=== PATIENT | male | born 1985 | race Two or more races ===

== ENCOUNTER 2017-08-16 17:53 | Inpatient (IN) | payer OTHER ==
[2017-08-16 20:36] LABS: ABS Basophils 0 10^3/ul (0-0.2); ABS Eosinophils 0.3 10^3/ul (0-0.6); ABS Lymphocytes 2.2 10^3/ul (1.0-4.8); ABS Monocytes 0.6 10^3/ul (0-0.8); ABS Neutrophils 2.6 10^3/ul (1.5-7.7); ABS Nucleated RBC 0 10^3/ul; Eosinophil % 5.5 % (0-6); Hematocrit 38 % (42-52); Hemoglobin 13.4 g/dl (14.0-18.0); Lymphocyte % 39.1 % (25-47); Mean Corpuscular HGB Conc 36 g/dl (31-36); Mean Corpuscular Hemoglobin 30 pg (27-31); Mean Corpuscular Volume 84 fL (80-94); Mean Platelet Volume 8.1 um3 (7.4-10.4); Nucleated Red Blood Cells % 0; Platelet Count 205 10^3/ul (150-450); Red Cell Distribution Width 13 % (10.5-15); White Blood Count 5.7 10^3/ul (3.5-10.8)
[2017-08-16 21:07] LABS: EGFR Non-African American 89.4 (>60)
[2017-08-16] MEDS ORDERED: buPROPion TAB* 100 MG PO ONE (21:22)
[2017-08-16] MEDS: Gabapentin CAP(*) 400 MG PO ONE (22:18)
[2017-08-17] MEDS ORDERED: QUEtiapine TAB* 100 MG PO ONE (01:15)
[2017-08-17] MEDS: Nicotine GUM* 2 MG PO PRN ×4 (02:01→20:38)
--- NOTE | 2017-08-17 05:44 | ED ---
Alcides Love Jennifer, scribed for Mele Kolb MD on 08/16/17 at 1957 . Psychiatric Complaint - HPI Summary HPI Summary: The patient is a 31 year old male who comes to the ED for evaluation of mental health from drug rehab. The patient is currently in rehab voluntarily for opiates, painkillers, and alcohol. He denies any symptoms of withdrawal. Patient denies SI, HI, chest pain, abdominal pain, nausea, headache. - History Of Current Complaint Chief Complaint: EDMentalHealth Time Seen by Provider: 08/16/17 19:10 Hx Obtained From: Patient Onset/Duration: Sudden Onset, Still Present Timing: Constant Severity Initially: Mild Severity Currently: None Aggravating Factor(s): Alcohol Use, Drug Use Alleviating Factor(s): Nothing Has Suicidal: Denies: Thoughts, With A Plan Has Homicidal: Denies: Thoughts, With A Plan - Allergies/Home Medications Allergies/Adverse Reactions: Allergies Allergy/AdvReac Type Severity Reaction Status Date / Time amoxicillin Allergy Unknown Verified 08/17/17 00:24 Reaction Details Penicillins Allergy Unknown Verified 08/17/17 00:23 Reaction Details Home Medications: Home Medications Buprenorphine/Naloxone SL TAB* [Suboxone 8-2 mg SL TAB*] 1.5 tab.sl SL QAM 08/16 [History Confirmed 08/17/17] Escitalopram (NF) [Lexapro 10 mg (NF)] 10 mg PO DAILY 08/16/17 [History Confirmed 08/17/17] Gabapentin CAP(*) [Neurontin 400 mg CAP(*)] 800 mg PO QID 08/16/17 [History Confirmed 08/17/17] QUEtiapine TAB* [Seroquel 100 MG *] 100 mg PO QPM 08/16/17 [History Confirmed ] buPROPion SR TAB* [Wellbutrin SR TAB*] 100 mg PO BID 08/16/17 [History Confirmed 08/17/17] busPIRone TAB* [Buspar TAB*] 10 mg PO Q6H PRN 08/17/17 [History Confirmed ] hydrOXYzine HCL TAB* [Atarax TAB 50 MG *] 50 mg PO Q4H PRN 08/17/17 [History Confirmed 08/17/17] PMH/Surg Hx/FS Hx/Imm Hx Endocrine/Hematology History: Denies: Hx Diabetes Cardiovascular History: Denies: Hx Hypertension Psychiatric History: Reports: Hx Depression, Hx of Violent Episodes Against Others Infectious Disease History: No Infectious Disease History: Denies: Traveled Outside the [place] in Last 30 Days - Family History Known Family History: Negative: Renal Disease - Social History Occupation: Unemployed Alcohol Use: Occasionally Hx Substance Use: Yes Substance Use Type: Reports: Cocaine, Heroin, Marijuana Hx Tobacco Use: Yes Smoking Status (MU): Light Every Day Tobacco Smoker Review of Systems Negative: Chest Pain Negative: Abdominal Pain, Nausea Negative: Headache Negative: Other - SI, HI All Other Systems Reviewed And Are Negative: Yes Physical Exam - Summary Physical Exam Summary: Appearance: Well appearing, no pain distress Skin: Surgical scar on left wrist, warm, dry, reflects adequate perfusion Head/face: normal Eyes: EOMI, VIVIAN ENT: normal Neck: supple, non-tender Respiratory: CTA, breath sounds present Cardiovascular: RRR, pulses symmetrical Abdomen: non-tender, soft Bowel Sounds: present Musculoskeletal: normal, strength/ROM intact Neuro: normal, sensory motor intact, A&Ox3 Triage Information Reviewed: Yes Vital Signs On Initial Exam: Initial Vitals Temp Pulse Resp BP Pulse Ox 98.1 F 70 16 120/67 99 08/16/17 18:09 08/16/17 18:09 08/16/17 18:09 08/16/17 18:09 08/16/17 18:09 Vital Signs Reviewed: Yes Diagnostics - Vital Signs Vital Signs Temp Pulse Resp BP Pulse Ox 08/16/17 18:09 98.1 F 70 16 120/67 99 - Laboratory Lab Results: Lab Results 08/16/17 08/16/17 Range/Units 20:30 20:30 WBC 5.7 (3.5-10.8) 10^3/ul RBC 4.50 (4.0-5.4) 10^6/ul Hgb 13.4 L (14.0-18.0) g/dl Hct 38 L (42-52) % MCV 84 (80-94) fL MCH 30 (27-31) pg MCHC 36 (31-36) g/dl RDW 13 (10.5-15) % Plt Count 205 (150-450) 10^3/ul MPV 8.1 (7.4-10.4) um3 Neut % (Auto) 44.9 (38-83) % Lymph % (Auto) 39.1 (25-47) % Bell % (Auto) 9.7 H (0-7) % Eos % (Auto) 5.5 (0-6) % Baso % (Auto) 0.8 (0-2) % Absolute Neuts (auto) 2.6 (1.5-7.7) 10^3/ul Absolute Lymphs (auto) 2.2 (1.0-4.8) 10^3/ul Absolute Monos (auto) 0.6 (0-0.8) 10^3/ul Absolute Eos (auto) 0.3 (0-0.6) 10^3/ul Absolute Basos (auto) 0 (0-0.2) 10^3/ul Absolute Nucleated RBC 0 10^3/ul Nucleated RBC % 0 Sodium 138 L (139-145) mmol/L Potassium 4.4 (3.5-5.0) mmol/L Chloride 101 (101-111) mmol/L Carbon Dioxide 31 (22-32) mmol/L Anion Gap 6 (2-11) mmol/L BUN 13 (6-24) mg/dL Creatinine 0.99 (0.67-1.17) mg/dL Est GFR ( Amer) 114.9 (>60) Est GFR (Non-Af Amer) 89.4 (>60) BUN/Creatinine Ratio 13.1 (8-20) Glucose 94 (70-100) mg/dL Calcium 9.4 (8.6-10.3) mg/dL Total Bilirubin 0.80 (0.2-1.0) mg/dL AST 33 (13-39) U/L ALT 37 (7-52) U/L Alkaline Phosphatase 56 (34-104) U/L Total Protein 7.1 (6.4-8.9) g/dL Albumin 4.1 (3.2-5.2) g/dL Globulin 3.0 (2-4) g/dL Albumin/Globulin Ratio 1.4 (1-3) TSH 1.15 (0.34-5.60) mcIU/mL Salicylates < 2.50 (<30) mg/dL Acetaminophen < 15 mcg/mL Serum Alcohol < 10 (<10) mg/dL Result Diagrams: 08/16/17 20:30 08/16/17 20:30 Lab Statement: Any lab studies that have been ordered have been reviewed, and results considered in the medical decision making process. Course/Dx - Course Course Of Treatment: The patient was medically cleared. He was taken for crisis evaluation. Crisis evaluators have elected to observe the patient through the night and make disposition on him following observation later in the morning. The patient will be held and signed out to Dr. Henley at shift change. The patient will go to a dual recovery program. - Differential Dx/Clinical Impression Provider Diagnosis: Adjustment disorder, Substance abuse Discharge - Sign-Out/Discharge Documenting (check all that apply): Sign-Out Patient Signing out patient TO: Chris Henley - pending transfer to dual recovery program - Discharge Plan Condition: Stable Referrals: No Primary Care Phys,NOPCP [Primary Care Provider] - - Billing Disposition and Condition Condition: STABLE The documentation as recorded by the Alcides harper Jennifer accurately reflects the service I personally performed and the decisions made by , Mele Kolb MD.
[2017-08-17 08:34] LABS: Urine Appearance Clear; Urine Blood Negative (Negative); Urine Color Yellow; Urine Ketones Negative (Negative); Urine Protein Negative (Negative); Urine Urobilinogen Negative (Negative)
[2017-08-17] MEDS ORDERED: LORazepam INJ* 2 MG/ML 1 ML VIAL IM ONE (08:43)
[2017-08-17] MEDS ORDERED: Haloperidol INJ IV/IM* 5 MG/ML AMP IM ONE (08:47)
[2017-08-17] MEDS ORDERED: Haloperidol INJ IV/IM* 5 MG/ML AMP ONE (08:48)
[2017-08-17] MEDS ORDERED: Gabapentin CAP(*) 400 MG PO ONE (09:00)
[2017-08-17] MEDS ORDERED: buPROPion SR TAB.SR* 100 MG PO ONE (09:00)
[2017-08-17] MEDS: CMC:Escitalopram (NF) 10 MG TAB PO SCH (09:02)
[2017-08-17] MEDS: Buprenorphine/Naloxone 8-2 MG SL TAB* 1 TAB PO SCH (09:27)
[2017-08-17] MEDS ORDERED: Al Hydrox/Mg Hydrox/Simet LIQ* 30 ML UDC PO PRN (11:30)
--- NOTE | 2017-08-17 11:30 | PN ---
ED Flex Patient Progress Note Date of Service: 08/17/17 Subjective: The patient is currently asleep following stat administration of IM medications following violent outburst this AM in the Flex. I called Dr. Celis ), medical provider at [facility] in [place], [place], who was the referring physician. Dr. Celis states that Mr. Bhakta is not appropriate for return to [facility], as his mental health needs would require a Dual Diagnosis facility, such as [facility] in [place], [place]. In response to my assertion that it is often difficult for [facility] to transfer patients to [facility], due to frequent lack of bed availability, Dr. Celis assures me that DVD administration, including Fiber Analyst Celestine Tobin ([phone]), will assist in facilitating transfer once the patient is psychiatrically cleared. Objective: Sleeping young male in blue patient scrubs Assessment: Unspecified Mood DO Plan: Admit to [facility] for psychiatric stabilization, followed by likely transfer to appropriate dual diagnosis facility. Vital Signs Temp Pulse Resp BP Pulse Ox 98.2 F 71 20 109/60 99 08/17/17 08:31 08/17/17 08:31 08/17/17 08:55 08/17/17 08:31 08/16/17 18:09 Lab Results - Entire Visit 08/17/17 08/17/17 08/16/17 08:15 08:15 20:30 WBC RBC Hgb Hct MCV MCH MCHC RDW Plt Count MPV Neut % (Auto) Lymph % (Auto) [place] % (Auto) Eos % (Auto) Baso % (Auto) Absolute Neuts (auto) Absolute Lymphs (auto) Absolute Monos (auto) Absolute Eos (auto) Absolute Basos (auto) Absolute Nucleated RBC Nucleated RBC % Sodium 138 L Potassium 4.4 Chloride 101 Carbon Dioxide 31 Anion Gap 6 BUN 13 Creatinine 0.99 Est GFR ( Amer) 114.9 Est GFR (Non-Af Amer) 89.4 BUN/Creatinine Ratio 13.1 Glucose 94 Calcium 9.4 Total Bilirubin 0.80 AST 33 ALT 37 Alkaline Phosphatase 56 Total Protein 7.1 Albumin 4.1 Globulin 3.0 Albumin/Globulin Ratio 1.4 TSH 1.15 Urine Color Yellow Urine Appearance Clear Urine pH 6.0 Ur Specific [place] 1.020 Urine Protein Negative Urine Ketones Negative Urine Blood Negative Urine Nitrate Negative Urine Bilirubin Negative Urine Urobilinogen Negative Ur Leukocyte Esterase Negative Urine Glucose Negative Salicylates < 2.50 Urine Opiates Screen None detected Acetaminophen < 15 Ur Barbiturates Screen None detected Ur Phencyclidine Scrn None detected Ur Amphetamines Screen None detected U Benzodiazepines Scrn None detected Urine Cocaine Screen None detected U Cannabinoids Screen None detected Serum Alcohol < 10 08/16/17 20:30 WBC 5.7 RBC 4.50 Hgb 13.4 L Hct 38 L MCV 84 MCH 30 MCHC 36 RDW 13 Plt Count 205 MPV 8.1 Neut % (Auto) 44.9 Lymph % (Auto) 39.1 [place] % (Auto) 9.7 H Eos % (Auto) 5.5 Baso % (Auto) 0.8 Absolute Neuts (auto) 2.6 Absolute Lymphs (auto) 2.2 Absolute Monos (auto) 0.6 Absolute Eos (auto) 0.3 Absolute Basos (auto) 0 Absolute Nucleated RBC 0 Nucleated RBC % 0 Sodium Potassium Chloride Carbon Dioxide Anion Gap BUN Creatinine Est GFR ( Amer) Est GFR (Non-Af Amer) BUN/Creatinine Ratio Glucose Calcium Total Bilirubin AST ALT Alkaline Phosphatase Total Protein Albumin Globulin Albumin/Globulin Ratio TSH Urine Color Urine Appearance Urine pH Ur Specific [place] Urine Protein Urine Ketones Urine Blood Urine Nitrate Urine Bilirubin Urine Urobilinogen Ur Leukocyte Esterase Urine Glucose Salicylates Urine Opiates Screen Acetaminophen Ur Barbiturates Screen Ur Phencyclidine Scrn Ur Amphetamines Screen U Benzodiazepines Scrn Urine Cocaine Screen U Cannabinoids Screen Serum Alcohol
[2017-08-17] MEDS ORDERED: hydrOXYzine HCL TAB* 50 MG PO PRN (11:32)
[2017-08-17] MEDS: Gabapentin CAP(*) 400 MG PO SCH ×3 (14:12→20:39)
--- NOTE | 2017-08-17 15:44 | ED ---
Jace Love Nilda, scribed for Chris Henley MD on 08/17/17 at 0719 . Progress - Progress Note Progress Note: This pt was signed out by Dr. Kolb, pending [facility] hold, awaiting disposition. Course/Dx - Course Course Of Treatment: This pt was signed out by Dr. Kolb, pending [facility] hold, awaiting disposition. [12:35] Dr. Negron (Psych) agrees to admit pt to [facility] for unspecified mood disorder. - Diagnoses Provider Diagnoses: Unspecified mood [affective] disorder - Provider Notifications Discussed Care Of Patient With: Fercho Negron - Psych Time Discussed With Above Provider: 12:35 Instructed by Provider To: Admit As Inpatient Discharge - Sign-Out/Discharge Documenting (check all that apply): Discharge/Admit/Transfer, Receiving Sign-Out Receiving patient FROM: Mele Kolb - Discharge Plan Condition: Stable Disposition: [facility]ATR[facility]AC[facility] Referrals: No Primary Care Phys,NOPCP [Primary Care Provider] - The documentation as recorded by the Jace harper Nilda accurately reflects the service I personally performed and the decisions made by Kale veliz Jerry, MD.
[2017-08-17] MEDS: Nicotine Inhaler* 10 MG AMP INH PRN ×2 (16:13→20:38)
[2017-08-17] MEDS ORDERED: Mouth Piece, Nicotine* 1 EACH CARTRIDGE ONE (16:13)
[2017-08-17] MEDS ORDERED: Nicotine Inhaler* 10 MG AMP ONE (16:13)
[2017-08-17] MEDS: buPROPion SR TAB.SR* 100 MG PO SCH (16:44)
[2017-08-17] MEDS: QUEtiapine TAB* 100 MG PO SCH (20:39)
[2017-08-17] MEDS: Gabapentin CAP(*) 400 MG PO ONE (20:41)
[2017-08-18] MEDS: Gabapentin CAP(*) 400 MG PO SCH ×4 (08:04→20:49)
[2017-08-18] MEDS: Nicotine Inhaler* 10 MG AMP INH PRN ×6 (08:04→20:51)
[2017-08-18] MEDS: Buprenorphine/Naloxone 8-2 MG SL TAB* 1 TAB PO SCH (08:05)
[2017-08-18] MEDS: buPROPion SR TAB.SR* 100 MG PO SCH ×2 (08:05→16:04)
[2017-08-18] MEDS: Nicotine GUM* 2 MG PO PRN ×6 (08:06→20:50)
[2017-08-18] MEDS: CMC:Escitalopram (NF) 10 MG TAB PO SCH (09:31)
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
[2017-08-18] MEDS: ATOMOXETINE 18 MG PO SCH (14:36)
[2017-08-18] MEDS: cloNIDine TAB* 0.1 MG PO SCH (15:27)
[2017-08-18] MEDS: QUEtiapine TAB* 100 MG PO SCH (20:50)
[2017-08-19] MEDS: ATOMOXETINE 18 MG PO SCH (08:01)
[2017-08-19] MEDS: Gabapentin CAP(*) 400 MG PO SCH ×4 (08:01→20:10)
[2017-08-19] MEDS: CMC:Escitalopram (NF) 10 MG TAB PO SCH (08:01)
[2017-08-19] MEDS: buPROPion SR TAB.SR* 100 MG PO SCH ×2 (08:02→16:03)
[2017-08-19] MEDS: Buprenorphine/Naloxone 8-2 MG SL TAB* 1 TAB PO SCH (08:02)
[2017-08-19] MEDS: cloNIDine TAB* 0.1 MG PO SCH ×4 (08:02→20:13)
[2017-08-19] MEDS: Nicotine GUM* 2 MG PO PRN ×7 (08:05→20:15)
[2017-08-19] MEDS: Nicotine Inhaler* 10 MG AMP INH PRN ×7 (08:05→20:15)
--- NOTE | 2017-08-19 10:36 | PN ---
Subjective - Subjective Subjective: Psychiatric Attending Progress Note: Patient slept 8 hours overnight. was annoyed that he could not use comfort rooom last night but recovered patient did ask me for staff pass and comfort room priveleges today. SW note reviewed and states that patient revealed AH and VH while at program. Patient denies verbalizing this. He relates that he was there for a few hours and they gave him questionairre and he was told to answer as if he were not taking his medications. Patient reports that he has suicidal ideation, depression, hopelessness, and loss of control of his temper when off medication and he answered yes to these questions. He denies "not engaging in the program" stating that he wasn't there long enough to engage. Patient refused clonidine this am due to possible adverse effect he had when he took it for withdrawal. He agreed to try low dosage today and I would check back with him later to see if he was having any side effects. We discussed potential benefits of clonidine for his restlessness and hyperactivity. I explained that once he is on it four times daily, I can replace oral form with a patch. Patch is changed weekly and obviates need to take oral clonidine 4 times daily. Patient also started Strattera 18 mg today. Both clonidine and strattera will target severe ADHD. Objective - Appearance Appearance: Well Developed/Nourished Dysmorphic Features: No Hygiene: Normal Grooming: Well Kept - Behavior Psychomotor Activities: Abnormal-Increased Exhibits Abnormal Movement: Yes - Attitude and Relatedness Attitude and Relatedness: Cooperative Eye Contact: Good - Speech Quality: Unpressured Latencies: Normal Quantity: Appropriate - Mood Patient's Decription of Mood: "Anxious" - hyperthymic and intermittent irritability - Affect Observed Affect: Labile Affect Consistent with: Euthymia - hyperthymic/euthymic - Thought Process Patient's Thought Process: Coherent Thought Content: No Passive Wish, No Suicidal Planning, No Homicidal Ideation, No Paranoid Ideation - Sensorium Type of Hallucinations: Visual: No, Auditory: No, Command: No - Level of Consciousness Orientation: Yes Intact, Yes Orientated to Time, Yes Orientated to Place, Yes Orientated to Person - Impulse Control Impulse Control: Poor - Insight and Judgement Insight and Judgement: Fair - Group Participation Particating in Group Activities: Yes - Medication Management Medication Management Adherence: Yes Assessment - Assessment Clinical Impression: 31 yo with polysubstance abuse on suboxone, mood disorder, severe ADHD, and probable Personality disorder. patient relapsed on cocaine 2 weeks ago and became suicidal and depressed. He was hospitalized for 10 days and discharged to D rehab. Rehab facility sent him to our facility soon after he arrived at their facility as they are not able to meet his needs and because they believed he was having psychotic symtpoms. Patient has ADHD and severe impulse control issues which are untreated. His mental status examination shows no evidence of psychosis. Patient has marked psychomotor restlessnes and irritability. He requires medication adjustment to treat his ADHD symptoms which are severely impairing. Plan - Plan Medications: Current Medications Acetaminophen (Tylenol Tab*) 650 mg PO Q4H PRN PRN Reason: for pain; or Temp >101 F Al Hydrox/Mg Hydrox/Simethicone (Maalox Plus*) 30 ml PO Q4H PRN PRN Reason: INDIGESTION Atomoxetine HCl (Strattera(Nf)) 25 mg PO 0800 [facility] PRN Reason: Protocol Stop: 08/22/17 08:01 Atomoxetine HCl (Strattera (Nf)) 40 mg PO DAILY@08 [facility] PRN Reason: Protocol Buprenorphine/Naloxone (Suboxone 8-2 Mg Sl Tab*) 1.5 tab.sl PO DAILY [facility] Last Admin: 08/19/17 08:02 Dose: 1.5 tab.sl Bupropion HCl (Wellbutrin Sr Tab*) 100 mg PO 0900,1700 [facility] Last Admin: 08/19/17 08:02 Dose: 100 mg Buspirone HCl (Buspar Tab*) 10 mg PO Q6H PRN PRN Reason: AGITATION/ANXIETY Clonidine HCl (Catapres Tab*) 0.05 mg PO QID@08,12,16,21 [facility] Escitalopram Oxalate (Lexapro (Nf)) 10 mg PO DAILY [facility] Last Admin: 08/19/17 08:01 Dose: 10 mg Gabapentin (Neurontin Cap(*)) 800 mg PO QID [facility] Last Admin: 08/19/17 12:17 Dose: 800 mg Hydroxyzine HCl (Atarax Tab*) 50 mg PO Q4H PRN PRN Reason: AGITATION/ANXIETY/INSOMNIA Nicotine (Nicotine Inhaler*) 10 mg INH Q2H PRN PRN Reason: CRAVING Last Admin: 08/19/17 12:17 Dose: 10 mg Nicotine Polacrilex (Nicotine Gum*) 2 mg PO Q2H PRN PRN Reason: CRAVING Last Admin: 08/19/17 12:17 Dose: 2 mg Quetiapine Fumarate (Seroquel Tab*) 100 mg PO 2100 [facility] Last Admin: 08/18/17 20:50 Dose: 100 mg PLAN Increase Strattera to 25 mg po QAM Start Clonidine 0.05 mg QID (total 0.2 mg per day) x 1 day, then tomorrow will increase to 0.1/0.05/0.1/0.5 (total 0.3 mg per day all other medications unchanged (see above) discharge plan is dual diaganosis drug rehab program
--- NOTE | 2017-08-19 13:14 | PN ---
MHU: Group Therapy Note - Service Type Service Type: 00230 Group Psychotherapy - Cognitive Behavioral Group Therapy ( CBT):Patient was attentive and participatory in CBT programming this morning, and remained in good behavioral control. Patient expressed positive insights regarding relevant treatment interventions and goals.
[2017-08-19] MEDS: QUEtiapine TAB* 100 MG PO SCH (20:11)
[2017-08-20] MEDS: CMC:Escitalopram (NF) 10 MG TAB PO SCH (08:06)
[2017-08-20] MEDS: Buprenorphine/Naloxone 8-2 MG SL TAB* 1 TAB PO SCH (08:06)
[2017-08-20] MEDS: Gabapentin CAP(*) 400 MG PO SCH ×4 (08:07→20:21)
[2017-08-20] MEDS: cloNIDine TAB* 0.1 MG PO SCH ×3 (08:08→16:04)
[2017-08-20] MEDS: buPROPion SR TAB.SR* 100 MG PO SCH ×2 (08:08→16:04)
[2017-08-20] MEDS: ATOMOXETINE 25 MG PO SCH (08:08)
[2017-08-20] MEDS: Nicotine GUM* 2 MG PO PRN ×7 (08:10→18:50)
[2017-08-20] MEDS: Nicotine Inhaler* 10 MG AMP INH PRN ×7 (08:10→18:50)
--- NOTE | 2017-08-20 10:24 | PN ---
Subjective - Subjective Subjective: Psychiatric attenting progress note: attending groups and compliant with medication less agitated over all feels clonidine is helping a little to decrease restlessness no adverse effects with clonidine and strattera titration. bp stable MSE: no SI no psychotic symptoms continues with restlessness mood: hyperthymic affect full range motor activity elevated poor impulse control Impression: ADHD severe polysubstance abuse depression recurrent in remission Plan: continue current medication regimen add clonidine patch 0.1 mg over weekend continue clonidine 0.3 mg oral per day increase strattera to 40 mg on wednesday awaiting transfer to dual diagnosis inpatient rehab Assessment - Assessment Clinical Impression: 31 yo with polysubstance abuse on suboxone, mood disorder, severe ADHD, and probable Personality disorder. patient relapsed on cocaine 2 weeks ago and became suicidal and depressed. He was hospitalized for 10 days and discharged to D rehab. Rehab facility sent him to our facility soon after he arrived at their facility as they are not able to meet his needs and because they believed he was having psychotic symtpoms. Patient has ADHD and severe impulse control issues which are untreated. His mental status examination shows no evidence of psychosis. Patient has marked psychomotor restlessnes and irritability. He requires medication adjustment to treat his ADHD symptoms which are severely impairing. Plan - Plan Treatment Plan: Name: KLEBER GUTIERREZ JR Birthdate: 1985 [id number] Medications: Current Medications Acetaminophen (Tylenol Tab*) 650 mg PO Q4H PRN PRN Reason: for pain; or Temp >101 F Al Hydrox/Mg Hydrox/Simethicone (Maalox Plus*) 30 ml PO Q4H PRN PRN Reason: INDIGESTION Atomoxetine HCl (Strattera(Nf)) 25 mg PO 0800 [facility] PRN Reason: Protocol Stop: 08/22/17 08:01 Last Admin: 08/20/17 08:08 Dose: 25 mg Atomoxetine HCl (Strattera (Nf)) 40 mg PO DAILY@08 [facility] PRN Reason: Protocol Buprenorphine/Naloxone (Suboxone 8-2 Mg Sl Tab*) 1.5 tab.sl PO DAILY [facility] Last Admin: 08/20/17 08:06 Dose: 1.5 tab.sl Bupropion HCl (Wellbutrin Sr Tab*) 100 mg PO 0900,1700 [facility] Last Admin: 08/20/17 08:08 Dose: 100 mg Buspirone HCl (Buspar Tab*) 10 mg PO Q6H PRN PRN Reason: AGITATION/ANXIETY Clonidine HCl (Catapres Tab*) 0.1 mg PO BID@08,16 [facility] Last Admin: 08/20/17 08:08 Dose: 0.1 mg Clonidine HCl (Catapres Tab*) 0.05 mg PO BID@12, [facility] Escitalopram Oxalate (Lexapro (Nf)) 10 mg PO DAILY [facility] Last Admin: 08/20/17 08:06 Dose: 10 mg Gabapentin (Neurontin Cap(*)) 800 mg PO QID [facility] Last Admin: 08/20/17 08:07 Dose: 800 mg Hydroxyzine HCl (Atarax Tab*) 50 mg PO Q4H PRN PRN Reason: AGITATION/ANXIETY/INSOMNIA Nicotine (Nicotine Inhaler*) 10 mg INH Q2H PRN PRN Reason: CRAVING Last Admin: 08/20/17 08:10 Dose: 10 mg Nicotine Polacrilex (Nicotine Gum*) 2 mg PO Q2H PRN PRN Reason: CRAVING Last Admin: 08/20/17 08:10 Dose: 2 mg Quetiapine Fumarate (Seroquel Tab*) 100 mg PO 2100 [facility] Last Admin: 08/19/17 20:11 Dose: 100 mg
[2017-08-20] MEDS: Acetaminophen TAB* 325 MG PO PRN (18:50)
[2017-08-20] MEDS: QUEtiapine TAB* 100 MG PO SCH (20:21)
[2017-08-21] MEDS: cloNIDine TAB* 0.1 MG PO SCH ×5 (02:00→20:08)
[2017-08-21] MEDS: ATOMOXETINE 25 MG PO SCH ×2 (08:07→13:51)
[2017-08-21] MEDS: Buprenorphine/Naloxone 8-2 MG SL TAB* 1 TAB PO SCH (08:07)
[2017-08-21] MEDS: Gabapentin CAP(*) 400 MG PO SCH ×4 (08:07→20:05)
[2017-08-21] MEDS: buPROPion SR TAB.SR* 100 MG PO SCH ×2 (08:08→16:01)
[2017-08-21] MEDS: CMC:Escitalopram (NF) 10 MG TAB PO SCH (08:08)
[2017-08-21] MEDS: Nicotine Inhaler* 10 MG AMP INH PRN ×6 (08:09→19:39)
[2017-08-21] MEDS: Nicotine GUM* 2 MG PO PRN ×6 (08:12→19:39)
[2017-08-21] MEDS: Acetaminophen TAB* 325 MG PO PRN ×2 (08:35→18:21)
[2017-08-21] MEDS ORDERED: Mouth Piece, Nicotine* 1 EACH CARTRIDGE ONE (10:13)
[2017-08-21] MEDS: QUEtiapine TAB* 100 MG PO SCH (20:07)
[2017-08-22] MEDS: Nicotine Inhaler* 10 MG AMP INH PRN ×8 (08:03→22:11)
[2017-08-22] MEDS: Nicotine GUM* 2 MG PO PRN ×8 (08:03→22:11)
[2017-08-22] MEDS: buPROPion SR TAB.SR* 100 MG PO SCH ×2 (08:04→16:07)
[2017-08-22] MEDS: Gabapentin CAP(*) 400 MG PO SCH ×4 (08:04→20:07)
[2017-08-22] MEDS: Buprenorphine/Naloxone 8-2 MG SL TAB* 1 TAB PO SCH (08:05)
[2017-08-22] MEDS: CMC:Escitalopram (NF) 10 MG TAB PO SCH (08:06)
[2017-08-22] MEDS: ATOMOXETINE 25 MG PO SCH (08:06)
[2017-08-22] MEDS: cloNIDine TAB* 0.1 MG PO SCH ×4 (08:06→20:09)
[2017-08-22] MEDS ORDERED: cloNIDine 0.1 MG PATCH* 0.1 MG/24 HR 7 DAY PATCH TRANSDERM SCH (09:00)
--- NOTE | 2017-08-22 17:07 | PN ---
Subjective - Subjective Date of Service: 08/22/17 Service Type: 97043 Hosp care 15 min low complexity Subjective: LISA says he was feeling despite the fact that he wasn't taking Strattera and Clonidine anymore because it was making him depressed. He rather wants Concerta instead as he has a plan th go back to school to finish his GED. Appeared happy in the milieu. Eating and sleeping good. Objective - Appearance Appearance: Well Developed/Nourished Dysmorphic Features: No Hygiene: Normal Grooming: Well Kept - Behavior Psychomotor Activities: Normal Exhibits Abnormal Movement: No - Attitude and Relatedness Attitude and Relatedness: Cooperative Eye Contact: Good - Speech Quality: Unpressured Latencies: Normal Quantity: Appropriate - Mood Patient's Decription of Mood: "Fine" - Affect Observed Affect: Non-labile Affect Consistent with: Euthymia - Thought Process Patient's Thought Process: Coherent, Goal Directed Thought Content: No Passive Wish, No Suicidal Planning, No Homicidal Ideation, No Paranoid Ideation - Sensorium Experiencing Hallucinations: No, Sensorium is Clear Type of Hallucinations: Visual: No, Auditory: No, Command: No - Level of Consciousness Level of Consciousness: Alert Orientation: Yes Intact, Yes Orientated to Time, Yes Orientated to Place, Yes Orientated to Person - Impulse Control Impulse Control: Intact - Insight and Judgement Insight and Judgement: Fair - Group Participation Particating in Group Activities: Yes - Medication Management Medication Management Adherence: Yes Assessment - Assessment Merits Inpatient Hospitalization: Consolidate Improvements, For Discharge Planning Plan - Plan Treatment Plan: Name: KLEBER GUTIERREZ JR Birthdate: 1985 [id number] Continued Medication Management: Continue Outpt Medication Medications: Current Medications Acetaminophen (Tylenol Tab*) 650 mg PO Q4H PRN PRN Reason: for pain; or Temp >101 F Last Admin: 08/21/17 18:21 Dose: 650 mg Al Hydrox/Mg Hydrox/Simethicone (Maalox Plus*) 30 ml PO Q4H PRN PRN Reason: INDIGESTION Atomoxetine HCl (Strattera (Nf)) 40 mg PO DAILY@08 [facility] PRN Reason: Protocol Buprenorphine/Naloxone (Suboxone 8-2 Mg Sl Tab*) 1.5 tab.sl PO DAILY [facility] Last Admin: 08/22/17 08:05 Dose: 1.5 tab.sl Bupropion HCl (Wellbutrin Sr Tab*) 100 mg PO 0900,1700 [facility] Last Admin: 08/22/17 16:07 Dose: 100 mg Buspirone HCl (Buspar Tab*) 10 mg PO Q6H PRN PRN Reason: AGITATION/ANXIETY Clonidine HCl (Catapres Tab*) 0.1 mg PO BID@08,16 [facility] Last Admin: 08/22/17 16:07 Dose: Not Given Clonidine HCl (Catapres Tab*) 0.05 mg PO BID@12,21 [facility] Last Admin: 08/22/17 10:40 Dose: Not Given Clonidine HCl (Bzvctpyy-Twj-4 0.1 Mg Patch*) 0.1 mg TRANSDERM Q7D [facility] Last Admin: 08/22/17 08:06 Dose: Not Given Escitalopram Oxalate (Lexapro (Nf)) 10 mg PO DAILY [facility] Last Admin: 08/22/17 08:06 Dose: 10 mg Gabapentin (Neurontin Cap(*)) 800 mg PO QID [facility] Last Admin: 08/22/17 16:06 Dose: 800 mg Hydroxyzine HCl (Atarax Tab*) 50 mg PO Q4H PRN PRN Reason: AGITATION/ANXIETY/INSOMNIA Nicotine (Nicotine Inhaler*) 10 mg INH Q2H PRN PRN Reason: CRAVING Last Admin: 08/22/17 16:10 Dose: 10 mg Nicotine Polacrilex (Nicotine Gum*) 2 mg PO Q2H PRN PRN Reason: CRAVING Last Admin: 08/22/17 16:10 Dose: 2 mg Quetiapine Fumarate (Seroquel Tab*) 100 mg PO 2100 [facility] Last Admin: 08/21/17 20:07 Dose: 100 mg - Discharge Plan Discharge Plan: Drug/Alcohol Rehab
[2017-08-22] MEDS: QUEtiapine TAB* 100 MG PO SCH (20:08)
[2017-08-22] MEDS: Acetaminophen TAB* 325 MG PO PRN (23:10)
[2017-08-23] MEDS: ATOMOXETINE 40 MG PO SCH (08:04)
[2017-08-23] MEDS: Nicotine Inhaler* 10 MG AMP INH PRN ×8 (08:04→22:16)
[2017-08-23] MEDS: cloNIDine TAB* 0.1 MG PO SCH ×4 (08:05→20:11)
[2017-08-23] MEDS: Nicotine GUM* 2 MG PO PRN ×8 (08:05→22:16)
[2017-08-23] MEDS: buPROPion SR TAB.SR* 100 MG PO SCH ×2 (08:06→16:05)
[2017-08-23] MEDS: CMC:Escitalopram (NF) 10 MG TAB PO SCH (08:06)
[2017-08-23] MEDS: Gabapentin CAP(*) 400 MG PO SCH ×4 (08:06→20:11)
[2017-08-23] MEDS: Buprenorphine/Naloxone 8-2 MG SL TAB* 1 TAB PO SCH (08:08)
--- NOTE | 2017-08-23 11:58 | PN ---
Subjective - Subjective Date of Service: 08/23/17 Service Type: 30059 Hosp care 15 min low complexity Subjective: SANTA is using the computer when I talk to him and is a bit dismissive and clearly doesn't want to talk. He is looking at cars and says he's into cars and working on them. He's feeling fine, he says, and is reporting no problems. Our interaction is superficial and mostly lacks eye contact. Objective - Appearance Appearance: Healthy Appearing Dysmorphic Features: No Hygiene: Normal Grooming: Well Kept - Behavior Psychomotor Activities: Normal Exhibits Abnormal Movement: No - Attitude and Relatedness Attitude and Relatedness: Minimally Cooperative Eye Contact: Poor - Speech Quality: Unpressured Latencies: Normal Quantity: Terse - Mood Patient's Decription of Mood: "Fine" - Affect Observed Affect: Constricted Affect Consistent with: Euthymia - Thought Process Patient's Thought Process: Coherent Thought Content: No Passive Wish, No Suicidal Planning, No Homicidal Ideation, No Paranoid Ideation - Sensorium Experiencing Hallucinations: No, Sensorium is Clear Type of Hallucinations: Visual: No, Auditory: No, Command: No - Level of Consciousness Level of Consciousness: Alert Orientation: Yes Intact, Yes Orientated to Time, Yes Orientated to Place, Yes Orientated to Person - Impulse Control Impulse Control: Intact - Insight and Judgement Insight and Judgement: Fair - Medication Management Medication Management Adherence: Yes - Additional Observations Comments: SANTA appears to be safe and healthy. He offers no concerns regarding suicidality, anxiety, hallucinations, etc. He states, "Yeah, I didn't come in for any of that." Assessment - Assessment Merits Inpatient Hospitalization: For Stabilization Clinical Impression: SANTA is here on the unit and participating. he is compliant with expectations and pleasant to talk to. Plan - Plan Treatment Plan: Name: KLEBER GUTIERREZ JR Birthdate: 1985 [id number] Medications: Current Medications Acetaminophen (Tylenol Tab*) 650 mg PO Q4H PRN PRN Reason: for pain; or Temp >101 F Last Admin: 08/22/17 23:10 Dose: 650 mg Al Hydrox/Mg Hydrox/Simethicone (Maalox Plus*) 30 ml PO Q4H PRN PRN Reason: INDIGESTION Atomoxetine HCl (Stratamiera (Nf)) 40 mg PO DAILY@08 [facility] PRN Reason: Protocol Last Admin: 08/23/17 08:04 Dose: Not Given Buprenorphine/Naloxone (Suboxone 8-2 Mg Sl Tab*) 1.5 tab.sl PO DAILY [facility] Last Admin: 08/23/17 08:08 Dose: 1.5 tab.sl Bupropion HCl (Wellbutrin Sr Tab*) 100 mg PO 0900,1700 [facility] Last Admin: 08/23/17 08:06 Dose: 100 mg Buspirone HCl (Buspar Tab*) 10 mg PO Q6H PRN PRN Reason: AGITATION/ANXIETY Clonidine HCl (Catapres Tab*) 0.1 mg PO BID@08,16 [facility] Last Admin: 08/23/17 08:05 Dose: Not Given Clonidine HCl (Catapres Tab*) 0.05 mg PO BID@12,21 [facility] Last Admin: 08/22/17 20:09 Dose: Not Given Clonidine HCl (Jlqkqqyh-Myf-5 0.1 Mg Patch*) 0.1 mg TRANSDERM Q7D [facility] Last Admin: 08/22/17 08:06 Dose: Not Given Escitalopram Oxalate (Lexapro (Nf)) 10 mg PO DAILY [facility] Last Admin: 08/23/17 08:06 Dose: 10 mg Gabapentin (Neurontin Cap(*)) 800 mg PO QID [facility] Last Admin: 08/23/17 08:06 Dose: 800 mg Hydroxyzine HCl (Atarax Tab*) 50 mg PO Q4H PRN PRN Reason: AGITATION/ANXIETY/INSOMNIA Nicotine (Nicotine Inhaler*) 10 mg INH Q2H PRN PRN Reason: CRAVING Last Admin: 08/23/17 10:05 Dose: 10 mg Nicotine Polacrilex (Nicotine Gum*) 2 mg PO Q2H PRN PRN Reason: CRAVING Last Admin: 08/23/17 10:05 Dose: 2 mg Quetiapine Fumarate (Seroquel Tab*) 100 mg PO 2100 [facility] Last Admin: 08/22/17 20:08 Dose: 100 mg - Discharge Plan Discharge Plan: Drug/Alcohol Rehab Additional Comments: LB is waiting for the next step in his journey. He is doing well here and requires typical treatment at this time.
[2017-08-23] MEDS: Acetaminophen TAB* 325 MG PO PRN ×2 (15:39→20:59)
[2017-08-23] MEDS: QUEtiapine TAB* 100 MG PO SCH (20:12)
[2017-08-24] MEDS: Nicotine GUM* 2 MG PO PRN ×8 (00:05→22:23)
[2017-08-24] MEDS: Nicotine Inhaler* 10 MG AMP INH PRN ×8 (00:05→22:22)
[2017-08-24] MEDS: Gabapentin CAP(*) 400 MG PO SCH ×4 (08:13→20:28)
[2017-08-24] MEDS: CMC:Escitalopram (NF) 10 MG TAB PO SCH (08:13)
[2017-08-24] MEDS: buPROPion SR TAB.SR* 100 MG PO SCH ×2 (08:14→16:08)
[2017-08-24] MEDS: Buprenorphine/Naloxone 8-2 MG SL TAB* 1 TAB PO SCH (08:14)
[2017-08-24] MEDS: cloNIDine TAB* 0.1 MG PO SCH ×2 (08:20→12:24)
[2017-08-24] MEDS: ATOMOXETINE 40 MG PO SCH (08:20)
--- NOTE | 2017-08-24 12:02 | PN ---
Subjective - Subjective Subjective: Psychiatric Attending Progress Note: met with Kleber today. He was in his room and was somewhat agitated When asked why, he told me he is inpatient and angry that he is still waiting to be transferred for rehab. He then began to consider whether he should in fact go to rehab or just forget the whole thing andgo back to where he was living. I managed to get him to consider the reasons why he initially went to [facility] several weeks ago. He was able to accept that the best plan for him is in fact to go for drug rehab given his relapse with cocaine. Patient then went on to tell me that he didnt like the way Strattera was making him feel. He stopped taking it over the weekend. Additionally he told me that he stopped taking the clonidine as well as he was feeling tired and cold after taking the medication. He did not feeli it was helping with his restlessness, or helping with impulse control/low frustration tolerance. MSE: fairly related fair eye contact restless, diffiulcty remaining still TP: organized, goal directed TC: no psychotic symptoms, significant anxiety worries about multiple things Mood: intermittently irritable, affect: diminished range alert and fully oriented in all spheres insight: fairly good. Judgment: intact Impression: ADHD s/p clonidine s/p strattera brief trials unspecified bipolar disorder impulse control disorder NOS unspecified anxiety disorder opioid use disorder on suboxone cocaine use disorder patient is stable for transfer to dual diagnosis rehab program Plan: continue current medication regimen will talk with patient about considering adding mood stabalizer for irritability (such as trileptal) awaiting transfer to dual diagnosis inpatient rehab program Assessment - Assessment Clinical Impression: 31 yo with polysubstance abuse on suboxone, mood disorder, severe ADHD, and probable Personality disorder. patient relapsed on cocaine 2 weeks ago and became suicidal and depressed. He was hospitalized for 10 days and discharged to [facility]. Rehab facility sent him to our facility soon after he arrived at their facility as they are not able to meet his needs and because they believed he was having psychotic symtpoms. Patient has ADHD and severe impulse control issues which are untreated. His mental status examination shows no evidence of psychosis. Patient has marked psychomotor restlessnes and irritability. He requires medication adjustment to treat his ADHD symptoms which are severely impairing. Plan - Plan Treatment Plan: Name: KLEBER GUTIERREZ JR Birthdate: 1985 [id number] Medications: Current Medications Acetaminophen (Tylenol Tab*) 650 mg PO Q4H PRN PRN Reason: for pain; or Temp >101 F Last Admin: 08/23/17 20:59 Dose: 650 mg Al Hydrox/Mg Hydrox/Simethicone (Maalox Plus*) 30 ml PO Q4H PRN PRN Reason: INDIGESTION Atomoxetine HCl (Strattera (Nf)) 40 mg PO DAILY@08 [facility] PRN Reason: Protocol Atomoxetine HCl (Strattera(Nf)) 25 mg PO DAILY@0800 [facility] Buprenorphine/Naloxone (Suboxone 8-2 Mg Sl Tab*) 1.5 tab.sl PO DAILY [facility] Last Admin: 08/24/17 08:14 Dose: 1.5 tab.sl Bupropion HCl (Wellbutrin Sr Tab*) 100 mg PO 0900,1700 [facility] Last Admin: 08/24/17 08:14 Dose: 100 mg Buspirone HCl (Buspar Tab*) 10 mg PO Q6H PRN PRN Reason: AGITATION/ANXIETY Clonidine HCl (Catapres Tab*) 0.1 mg PO BID@08,16 [facility] Stop: 08/24/17 16:01 Last Admin: 08/24/17 08:20 Dose: Not Given Clonidine HCl (Catapres Tab*) 0.05 mg PO BID@,21 [facility] Stop: 08/24/17 21:01 Last Admin: 08/23/17 20:11 Dose: Not Given Clonidine HCl (Pfmnczxe-Qfm-5 0.1 Mg Patch*) 0.1 mg TRANSDERM Q7D [facility] Last Admin: 08/22/17 08:06 Dose: Not Given Clonidine HCl (Catapres Tab*) 0.1 mg PO QID@08,12,16,21 [facility] Escitalopram Oxalate (Lexapro (Nf)) 10 mg PO DAILY [facility] Last Admin: 08/24/17 08:13 Dose: 10 mg Gabapentin (Neurontin Cap(*)) 800 mg PO QID [facility] Last Admin: 08/24/17 08:13 Dose: 800 mg Hydroxyzine HCl (Atarax Tab*) 50 mg PO Q4H PRN PRN Reason: AGITATION/ANXIETY/INSOMNIA Nicotine (Nicotine Inhaler*) 10 mg INH Q2H PRN PRN Reason: CRAVING Last Admin: 08/24/17 10:20 Dose: 10 mg Nicotine Polacrilex (Nicotine Gum*) 2 mg PO Q2H PRN PRN Reason: CRAVING Last Admin: 08/24/17 10:20 Dose: 2 mg Quetiapine Fumarate (Seroquel Tab*) 100 mg PO 2100 [facility] Last Admin: 08/23/17 20:12 Dose: 100 mg
[2017-08-24] MEDS ORDERED: LORazepam TAB(*) 1 MG PO ONE (13:46)
[2017-08-24] MEDS: LORazepam TAB(*) 1 MG PO PRN ×2 (14:04→17:59)
[2017-08-24] MEDS: Acetaminophen TAB* 325 MG PO PRN (17:15)
[2017-08-24] MEDS: QUEtiapine TAB* 100 MG PO SCH (20:28)
[2017-08-25] MEDS ORDERED: CMCS:Atomoxetine(NF) 25 MG CAP PO SCH (08:00)
[2017-08-25] MEDS ORDERED: CMCS:Atomoxetine (NF) 40 MG CAP PO SCH (08:00)
[2017-08-25] MEDS: Buprenorphine/Naloxone 8-2 MG SL TAB* 1 TAB PO SCH (08:33)
[2017-08-25] MEDS: Gabapentin CAP(*) 400 MG PO SCH ×4 (08:34→20:25)
[2017-08-25] MEDS: buPROPion SR TAB.SR* 100 MG PO SCH ×2 (08:34→16:04)
[2017-08-25] MEDS: Nicotine Inhaler* 10 MG AMP INH PRN ×6 (08:35→20:55)
[2017-08-25] MEDS: Nicotine GUM* 2 MG PO PRN ×7 (08:35→20:55)
[2017-08-25] MEDS: CMC:Escitalopram (NF) 10 MG TAB PO SCH (08:37)
[2017-08-25] MEDS: cloNIDine TAB* 0.1 MG PO SCH ×4 (08:37→20:55)
[2017-08-25] MEDS: LORazepam TAB(*) 1 MG PO PRN ×2 (10:00→14:17)
[2017-08-25] MEDS ORDERED: LORazepam TAB(*) 1 MG PO ONE (17:14)
[2017-08-25] MEDS: Acetaminophen TAB* 325 MG PO PRN (18:54)
[2017-08-25] MEDS: QUEtiapine TAB* 100 MG PO SCH (20:25)
[2017-08-26] MEDS: Nicotine GUM* 2 MG PO PRN ×8 (08:11→22:22)
[2017-08-26] MEDS: CMC:Escitalopram (NF) 10 MG TAB PO SCH (08:11)
[2017-08-26] MEDS: Nicotine Inhaler* 10 MG AMP INH PRN ×8 (08:11→22:22)
[2017-08-26] MEDS: buPROPion SR TAB.SR* 100 MG PO SCH ×2 (08:12→16:07)
[2017-08-26] MEDS: Gabapentin CAP(*) 400 MG PO SCH ×4 (08:12→20:16)
[2017-08-26] MEDS: Buprenorphine/Naloxone 8-2 MG SL TAB* 1 TAB PO SCH (08:12)
[2017-08-26] MEDS: cloNIDine TAB* 0.1 MG PO SCH ×4 (08:13→21:03)
[2017-08-26] MEDS: LORazepam TAB(*) 1 MG PO PRN ×2 (09:16→14:22)
--- NOTE | 2017-08-26 10:08 | PN ---
Subjective - Subjective Subjective: Psychiatric Attending Progress Note: attended grouips throughout the day yesterday and today. impulse control has improved. very motivated to go for drug rehab stay at [facility]. 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 He was pleased that [facility] has accepted him for Wednesday. He speaks with his family on a daily basis and they have encouraged him to get the help that he needs. Slept well last night. Objective - Appearance Appearance: Well Developed/Nourished Dysmorphic Features: No Hygiene: Normal Grooming: Well Kept - Behavior Psychomotor Activities: Abnormal-Increased Exhibits Abnormal Movement: No - Attitude and Relatedness Attitude and Relatedness: Cooperative Eye Contact: Fair - Speech Quality: Unpressured Latencies: Normal Quantity: Appropriate - Mood Patient's Decription of Mood: "Anxious" - Affect Observed Affect: Labile - Thought Process Patient's Thought Process: Coherent Thought Content: No Passive Wish, No Suicidal Planning, No Homicidal Ideation, No Paranoid Ideation - Sensorium Type of Hallucinations: Visual: No, Auditory: No, Command: No - Level of Consciousness Level of Consciousness: Alert Orientation: Yes Intact, Yes Orientated to Time, Yes Orientated to Place, Yes Orientated to Person - Impulse Control Impulse Control: Tenuous - Insight and Judgement Insight and Judgement: Good - Group Participation Particating in Group Activities: Yes - Medication Management Medication Management Adherence: Yes Assessment - Assessment Clinical Impression: 31 yo with polysubstance abuse on suboxone, mood disorder, severe ADHD, and probable Personality disorder. patient relapsed on cocaine 2 weeks ago and became suicidal and depressed. He was hospitalized for 10 days and discharged to [facility]. Rehab facility sent him to our facility soon after he arrived at their facility as they are not able to meet his needs and because they believed he was having psychotic symtpoms. Patient's mental status shows no evidence of psychosis. His mood has been stable. He is awaiting transfer to [facility] for dual diagnosis rehabilitation treatment progrram. Plan - Plan Medications: Plan: Continue current medication regimen transfer to [facility] on 08/30/2017
--- NOTE | 2017-08-26 16:13 | PN ---
MHU: Group Therapy Note - Service Type Service Type: [id number] Group Psychotherapy - Medication Education Group: Patient presented as disruptive in discussion and needed repeated redirection to attend to presented materials.
[2017-08-26] MEDS: Acetaminophen TAB* 325 MG PO PRN (17:23)
[2017-08-26] MEDS: busPIRone TAB* 10 MG PO PRN (17:24)
[2017-08-26] MEDS: QUEtiapine TAB* 100 MG PO SCH (20:17)
[2017-08-27] MEDS: Nicotine Inhaler* 10 MG AMP INH PRN ×8 (03:38→20:30)
[2017-08-27] MEDS: Nicotine GUM* 2 MG PO PRN ×7 (03:38→20:30)
[2017-08-27] MEDS: cloNIDine TAB* 0.1 MG PO SCH ×4 (08:08→21:00)
[2017-08-27] MEDS: CMC:Escitalopram (NF) 10 MG TAB PO SCH (08:08)
[2017-08-27] MEDS: Buprenorphine/Naloxone 8-2 MG SL TAB* 1 TAB PO SCH (08:09)
[2017-08-27] MEDS: Gabapentin CAP(*) 400 MG PO SCH ×4 (08:10→20:26)
[2017-08-27] MEDS: buPROPion SR TAB.SR* 100 MG PO SCH ×2 (08:11→16:02)
[2017-08-27] MEDS: LORazepam TAB(*) 1 MG PO PRN ×2 (08:13→12:11)
--- NOTE | 2017-08-27 10:48 | PN ---
Subjective - Subjective Subjective: Psychiatric Attending Progress Note: mildly agitated earlier today by comment another patient made but was able to recover by having one to one with nursing staff. patient looks forward to discharge this wednesday. sleeping well with seroquel Objective - Appearance Appearance: Healthy Appearing Dysmorphic Features: No Hygiene: Normal Grooming: Well Kept - Behavior Psychomotor Activities: Normal - Attitude and Relatedness Attitude and Relatedness: Cooperative Eye Contact: Fair - Speech Quality: Unpressured Latencies: Normal Quantity: Appropriate - Mood Patient's Decription of Mood: "Irritable" - Affect Observed Affect: Non-labile - Thought Process Patient's Thought Process: Coherent Thought Content: No Passive Wish, No Homicidal Ideation, No Paranoid Ideation - Sensorium Experiencing Hallucinations: No, Sensorium is Clear Type of Hallucinations: Visual: No, Auditory: No, Command: No - Level of Consciousness Level of Consciousness: Alert Orientation: Yes Intact, Yes Orientated to Time, Yes Orientated to Place, Yes Orientated to Person - Impulse Control Impulse Control: Tenuous - Insight and Judgement Insight and Judgement: Fair - Group Participation Particating in Group Activities: Yes - Medication Management Medication Management Adherence: Yes Assessment - Assessment Clinical Impression: 31 yo with polysubstance abuse on suboxone, mood disorder, severe ADHD, and probable Personality disorder. patient relapsed on cocaine 2 weeks ago and became suicidal and depressed. He was hospitalized for 10 days and discharged to [facility]. Rehab facility sent him to our facility soon after he arrived at their facility as they are not able to meet his needs and because they believed he was having psychotic symtpoms. Patient's mental status shows no evidence of psychosis. His mood has been stable. He is awaiting transfer to [facility] [place] dual diagnosis rehabilitation treatment progrram. Plan - Plan Treatment Plan: Plan: continue medication regimen unchanged d/c for this to [facility] Medications: Current Medications Acetaminophen (Tylenol Tab*) 650 mg PO Q4H PRN PRN Reason: for pain; or Temp >101 F Last Admin: 08/26/17 17:23 Dose: 650 mg Al Hydrox/Mg Hydrox/Simethicone (Maalox Plus*) 30 ml PO Q4H PRN PRN Reason: INDIGESTION Buprenorphine/Naloxone (Suboxone 8-2 Mg Sl Tab*) 1.5 tab.sl PO DAILY [facility] Last Admin: 08/27/17 08:09 Dose: 1.5 tab.sl Bupropion HCl (Wellbutrin Sr Tab*) 100 mg PO 0900,1700 [facility] Last Admin: 08/27/17 08:11 Dose: 100 mg Buspirone HCl (Buspar Tab*) 10 mg PO Q6H PRN PRN Reason: AGITATION/ANXIETY Last Admin: 08/26/17 17:24 Dose: 10 mg Clonidine HCl (Catapres Tab*) 0.1 mg PO QID@08,12,16,21 [facility] Last Admin: 08/27/17 08:08 Dose: Not Given Escitalopram Oxalate (Lexapro (Nf)) 10 mg PO DAILY [facility] Last Admin: 08/27/17 08:08 Dose: 10 mg Gabapentin (Neurontin Cap(*)) 800 mg PO QID [facility] Last Admin: 08/27/17 08:10 Dose: 800 mg Hydroxyzine HCl (Atarax Tab*) 50 mg PO Q4H PRN PRN Reason: AGITATION/ANXIETY/INSOMNIA Last Admin: 08/26/17 19:13 Dose: 50 mg Lorazepam (Ativan Tab(*)) 1 mg PO BID PRN PRN Reason: anxiety/agitation Last Admin: 08/27/17 08:13 Dose: 1 mg Nicotine (Nicotine Inhaler*) 10 mg INH Q2H PRN PRN Reason: CRAVING Last Admin: 08/27/17 10:16 Dose: 10 mg Nicotine Polacrilex (Nicotine Gum*) 2 mg PO Q2H PRN PRN Reason: CRAVING Last Admin: 08/27/17 10:16 Dose: 2 mg Quetiapine Fumarate (Seroquel Tab*) 100 mg PO 2100 [facility] Last Admin: 08/26/17 20:17 Dose: 100 mg
[2017-08-27] MEDS: Acetaminophen TAB* 325 MG PO PRN (13:15)
[2017-08-27] MEDS ORDERED: LORazepam TAB(*) 1 MG PO ONE (17:19)
[2017-08-27] MEDS: busPIRone TAB* 10 MG PO PRN (19:57)
[2017-08-27] MEDS: QUEtiapine TAB* 100 MG PO SCH (20:26)
[2017-08-28] MEDS: buPROPion SR TAB.SR* 100 MG PO SCH ×2 (08:09→16:11)
[2017-08-28] MEDS: Gabapentin CAP(*) 400 MG PO SCH ×4 (08:09→20:06)
[2017-08-28] MEDS: CMC:Escitalopram (NF) 10 MG TAB PO SCH (08:09)
[2017-08-28] MEDS: Buprenorphine/Naloxone 8-2 MG SL TAB* 1 TAB PO SCH (08:10)
[2017-08-28] MEDS: cloNIDine TAB* 0.1 MG PO SCH ×5 (08:11→21:31)
[2017-08-28] MEDS: Nicotine Inhaler* 10 MG AMP INH PRN ×7 (08:11→22:11)
[2017-08-28] MEDS: Nicotine GUM* 2 MG PO PRN ×6 (08:11→22:11)
[2017-08-28] MEDS: LORazepam TAB(*) 1 MG PO PRN ×2 (08:57→13:34)
[2017-08-28] MEDS: QUEtiapine TAB* 100 MG PO SCH (20:06)
[2017-08-29] MEDS: buPROPion SR TAB.SR* 100 MG PO SCH ×2 (08:30→16:04)
[2017-08-29] MEDS: Buprenorphine/Naloxone 8-2 MG SL TAB* 1 TAB PO SCH (08:30)
[2017-08-29] MEDS: CMC:Escitalopram (NF) 10 MG TAB PO SCH (08:30)
[2017-08-29] MEDS: cloNIDine TAB* 0.1 MG PO SCH ×4 (08:30→20:33)
[2017-08-29] MEDS: Gabapentin CAP(*) 400 MG PO SCH ×4 (08:31→20:33)
[2017-08-29] MEDS: Nicotine Inhaler* 10 MG AMP INH PRN ×5 (08:32→20:37)
[2017-08-29] MEDS: Nicotine GUM* 2 MG PO PRN ×5 (08:32→20:37)
[2017-08-29] MEDS: LORazepam TAB(*) 1 MG PO PRN ×2 (09:12→13:25)
[2017-08-29] MEDS: Acetaminophen TAB* 325 MG PO PRN (16:48)
[2017-08-29] MEDS ORDERED: LORazepam TAB(*) 1 MG PO ONE (20:00)
[2017-08-29] MEDS: QUEtiapine TAB* 100 MG PO SCH (20:33)
[2017-08-30 07:36] VITALS: BP 108/54
[2017-08-30] MEDS: Nicotine Inhaler* 10 MG AMP INH PRN (08:27)
[2017-08-30] MEDS: Nicotine GUM* 2 MG PO PRN (08:27)
[2017-08-30] MEDS: Gabapentin CAP(*) 400 MG PO SCH (08:28)
[2017-08-30] MEDS: buPROPion SR TAB.SR* 100 MG PO SCH (08:28)
[2017-08-30] MEDS: CMC:Escitalopram (NF) 10 MG TAB PO SCH (08:28)
[2017-08-30] MEDS: cloNIDine TAB* 0.1 MG PO SCH (08:29)
[2017-08-30] MEDS: LORazepam TAB(*) 1 MG PO PRN (08:30)
[2017-08-30] MEDS: Buprenorphine/Naloxone 8-2 MG SL TAB* 1 TAB PO SCH (08:31)
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
== END 2017-08-30 09:00 | DRG 752 ==
LOC: ED 17:53 → BSU 08-17 11:59
PROVIDERS: ADMIT Psychiatry & Neurology Psychiatry; ATTEND Psychiatry & Neurology Psychiatry
PROC: GZHZZZZ Group Psychotherapy (ICD-10-PCS; principal; 2017-08-26)
DX: F60.9 Personality disorder, unspecified (principal); F33.40 Major depressive disorder, recurrent, in remission, unspecified; R45.851 Suicidal ideations; F90.2 Attention-deficit hyperactivity disorder, combined type; F31.9 Bipolar disorder, unspecified; F14.10 Cocaine abuse, uncomplicated; F11.10 Opioid abuse, uncomplicated; Z62.810 Personal history of physical and sexual abuse in childhood; F41.9 Anxiety disorder, unspecified; F63.9 Impulse disorder, unspecified; F12.10 Cannabis abuse, uncomplicated; F43.10 Post-traumatic stress disorder, unspecified; R45.1 Restlessness and agitation; Z87.828 Personal history of other (healed) physical injury and trauma; Z88.0 Allergy status to penicillin; Z81.8 Family history of other mental and behavioral disorders; Z72.89 Other problems related to lifestyle; Z91.5 Personal history of self-harm
CPT/HCPCS: 36415; 80053; 80061; 80307; 80320; 80329; 81003; 83036; 84443; 85025; 90853; 99222; 99231; 99232; 99238; 99283; A9270-GY; G0480; J1630; J2060